=== PATIENT | male | born 1985 ===

== ENCOUNTER 2025-08-11 18:22 | Emergency (ER) | payer SELFPAY ==
[2025-08-11] MEDS: Diphtheria,Pertussis(Acell),Tetanus Vaccine 0.5 ML Syringe IM ONE (19:15)
[2025-08-11 19:54] VITALS: BP 111/72; PULSE 67
== END 2025-08-11 20:27 ==
LOC: CC.ED 18:22
DX: S98.211A Complete traumatic amputation of two or more right lesser toes, initial encounter (principal); S92.531A Displaced fracture of distal phalanx of right lesser toe(s), initial encounter for closed fracture; Z23 Encounter for immunization; W01.0XXA Fall on same level from slipping, tripping and stumbling without subsequent striking against object, initial encounter
CPT/HCPCS: 73630-RT; 90471; 90715; 96374; 96375; 96376; 99283; 99283-25; J0690; J1171

== ENCOUNTER 2025-08-22 17:33 | Emergency (ER) | payer SELFPAY ==
[2025-08-22] MEDS: cefTRIAXone 1 GM, Lidocaine 1% 2.1 ML IM STA (18:11)
[2025-08-22] MEDS: Take Home: Acetaminophen/HYDROcodone 325-5 MG, 2 Tab Pack PO ONE (18:17)
== END 2025-08-22 18:46 | disposition home or self-care (01) ==
LOC: CC.ED 17:33
DX: L76.82 Other postprocedural complications of skin and subcutaneous tissue (principal); S98 Traumatic amputation of ankle and foot; X58.XXXS Exposure to other specified factors, sequela; Y83.8 Other surgical procedures as the cause of abnormal reaction of the patient, or of later complication, without mention of misadventure at the time of the procedure
CPT/HCPCS: 96372; 99283; 99284; A9270; J0696; J2003; J1171

== ENCOUNTER 2025-10-01 15:26 | Emergency (ER) | payer OTHER | END 2025-10-01 16:34 | disposition home or self-care (01) | LOC: CC.ED 15:26 | DX: T81.31XA Disruption of external operation (surgical) wound, not elsewhere classified, initial encounter (principal); Z79.899 Other long term (current) drug therapy | CPT/HCPCS: 99283 ==